=== PATIENT | male | born 1990 | race African-American/Black ===

== ENCOUNTER 2017-12-22 21:31 | Emergency (ER) | payer MEDICAID ==
[~2017-12-22] VITALS: Ht 185.4 cm; Wt 81.6 kg
[~2017-12-22 21:31] MED LIST: AZITHROMYCIN500 MG ORAL; KENALOG 0.1% CR15 GM APPLIC; PROAIR HFA8.5 GM INH
[2017-12-22 22:46] LABS: HEMATOCRIT 35.2 % (42.0-52.0); HEMOGLOBIN 11.8 G/DL (14.2-18.0); MEAN CORPUSCULAR VOLUME 89 FL (80-99); PLATELET COUNT 98 K/UL (150-450); RED BLOOD COUNT 3.95 M/UL (4.70-6.10); RED CELL DISTRIBUTION WIDTH 11.2 % (11.6-14.8); WHITE BLOOD COUNT 5.6 K/UL (4.8-10.8)
[2017-12-22 22:47] LABS: LYMPHOCYTES % (AUTO) 29.8 % (20.0-45.0); MONOCYTES % (AUTO) 7.9 % (1.0-10.0); NEUTROPHILS % (AUTO) 61.5 % (45.0-75.0)
[2017-12-22 22:48] LABS: BASOPHILS % (AUTO) 0.2 % (0.0-2.0); EOSINOPHILS % (AUTO) 0.6 % (0.0-3.0)
[2017-12-22 23:00] LABS: ANION GAP 3 mmol/L (5-15); BLOOD UREA NITROGEN 10 mg/dL (7-18); CARBON DIOXIDE 30 MMOL/L (21-32); CHLORIDE 103 MMOL/L (98-107); POTASSIUM 3.4 MMOL/L (3.5-5.1); SODIUM 136 MMOL/L (136-145)
[2017-12-22 23:01] LABS: CALCIUM 8.6 MG/DL (8.5-10.1)
[2017-12-22 23:06] LABS: ALANINE AMINOTRANSFERASE 20 U/L (12-78); ALBUMIN 2.9 G/DL (3.4-5.0); ALBUMIN/GLOBULIN RATIO 0.5 (1.0-2.7); ALKALINE PHOSPHATASE 75 U/L (46-116); ASPARTATE AMINO TRANSFERASE 18 U/L (15-37); BILIRUBIN,TOTAL 0.2 MG/DL (0.2-1.0)
[2017-12-22 23:12] LABS: APPEARANCE,URINE TURBID; BILIRUBIN, URINE NEGATIVE (NEGATIVE); GLUCOSE, URINE (UA) NEGATIVE (NEGATIVE); KETONES,URINE NEGATIVE (NEGATIVE); LEUKOCYTE ESTERASE ,URINE 1+ (NEGATIVE); NITRITE,URINE NEGATIVE (NEGATIVE); PH,URINE 6.5 (4.5-8.0); PROTEIN,URINE 3+ (NEGATIVE); UROBILINOGEN,URINE NORMAL MG/DL (0.0-1.0)
[2017-12-22 23:15] LABS: COLOR,URINE RED
[2017-12-22 23:21] VITALS: BP 102/61
[2017-12-23 00:31] VITALS: BP 95/38
[2017-12-23 03:42] VITALS: BP 115/63
[2017-12-23 05:42] VITALS: BP 105/66
--- NOTE | 2017-12-23 05:54 | Emergency Room Report ---
History of Present Illness General Chief Complaint: Altered Level of Consciousness Source: EMS Present Illness HPI 27-year-old male presents ED for evaluation. Patient brought in by EMS found altered. Found sleeping in his car tonight. Upon arrival patient lethargic unable to provide any additional history. No signs of distress. [employer] on scene state that they found marijuana in the car. No other aggravating relieving factors. No other associated symptoms Allergies: Coded Allergies: SHELLFISH DERIVED (Unverified Allergy, Unknown, 01/04/16) UNABLE TO ASSESS (Unverified , 12/22/17) Uncoded Allergies: SHELLFISH (Allergy, Unknown, 01/04/16) Patient History Past Medical History: HIV Past Surgical History: none Pertinent Family History: none Social History: Reports: drug use, Denies: smoking, alcohol use Immunizations: UTD Reviewed Nursing Documentation: PMH: Agreed, PSxH: Agreed Nursing Documentation-PMH Past Medical History Deferred: Pt Cognitively Impaired Hx Cardiac Problems: Yes - hiv Review of Systems All Other Systems: limited Physical Exam Vital Signs Date Time Temp Pulse Resp B/P (MAP) Pulse Ox O2 Delivery O2 Flow Rate FiO2 12/22/17 21:09 98.6 68 18 138/86 98 Room Air 98.6 Sp02 EP Interpretation: reviewed, normal General Appearance: no apparent distress, lethargic Head: normocephalic Eyes: bilateral eye normal inspection, bilateral eye PERRL ENT: normal ENT inspection Neck: normal inspection Respiratory: chest non-tender, lungs clear, normal breath sounds, speaking full sentences Cardiovascular #1: regular rate, rhythm, no edema Gastrointestinal: normal bowel sounds, non tender, soft, non-distended, no guarding, no rebound Rectal: deferred Genitourinary: no CVA tenderness Musculoskeletal: normal inspection Neurologic: other - lethargic Psychiatric: other - lethargic Skin: normal inspection Lymphatic: normal inspection Medical Decision Making Diagnostic Impression: Primary Impression: Substance abuse Additional Impression: Altered level of consciousness ER Course Hospital Course 27-year-old M presents to ED with altered mental status. Differential diagnoses include: Psychosis, EtOH, drug abuse Clinical course patient placed on stretcher. On ammonia distiller. After initial history and physical ordered labs, IV fluids, EKG, CT brain. Labs reviewed-electrolytes okay, no leukocytosis, hemoglobin/hematocrit stable, tox panel + for multilple substances EKG - NSR, no acute ischemic changes interpreted by me CT brain shows no acute pathology patient allowed to sleep. Patient is now awake alert oriented x3, ambulating i. I feel this is a highly complex case requiring extensive working including EKG/Rhythm strip, Xray/CT/US, Blood/urine lab work, repeat exams while in ED, and administration of strong opiates/narcotics for pain control, admission to hospital or close patient follow up. Diagnosis - substance abuse, ALOC Stable and discharged to home. Followup with PMD. Return to ED if symptoms recur or worsen Labs Test 12/22/17 22:10 12/22/17 22:54 White Blood Count 5.6 K/UL (4.8-10.8) Red Blood Count 3.95 M/UL (4.70-6.10) Hemoglobin 11.8 G/DL (14.2-18.0) Hematocrit 35.2 % (42.0-52.0) Mean Corpuscular Volume 89 FL (80-99) Mean Corpuscular Hemoglobin 29.8 PG (27.0-31.0) Mean Corpuscular Hemoglobin Concent 33.5 G/DL (32.0-36.0) Red Cell Distribution Width 11.2 % (11.6-14.8) Platelet Count 98 K/UL (150-450) Mean Platelet Volume 6.4 FL (6.5-10.1) Neutrophils (%) (Auto) 61.5 % (45.0-75.0) Lymphocytes (%) (Auto) 29.8 % (20.0-45.0) Monocytes (%) (Auto) 7.9 % (1.0-10.0) Eosinophils (%) (Auto) 0.6 % (0.0-3.0) Basophils (%) (Auto) 0.2 % (0.0-2.0) Sodium Level 136 MMOL/L (136-145) Potassium Level 3.4 MMOL/L (3.5-5.1) Chloride Level 103 MMOL/L (98-107) Carbon Dioxide Level 30 MMOL/L (21-32) Anion Gap 3 mmol/L (5-15) Blood Urea Nitrogen 10 mg/dL (7-18) Creatinine 1.0 MG/DL (0.55-1.30) Estimat Glomerular Filtration Rate > 60 mL/min (>60) Glucose Level 92 MG/DL (74-106) Calcium Level 8.6 MG/DL (8.5-10.1) Total Bilirubin 0.2 MG/DL (0.2-1.0) Aspartate Amino Transf (AST/SGOT) 18 U/L (15-37) Alanine Aminotransferase (ALT/SGPT) 20 U/L (12-78) Alkaline Phosphatase 75 U/L (46-116) Total Protein 8.8 G/DL (6.4-8.2) Albumin 2.9 G/DL (3.4-5.0) Globulin 5.9 g/dL Albumin/Globulin Ratio 0.5 (1.0-2.7) Salicylates Level 1.3 ug/mL (2.8-20) Acetaminophen Level < 2 MCG/ML (10-30) Phenytoin (Dilantin) Level < 0.4 ug/mL (10-20) Valproic Acid (Depakene) Level < 3 MCG/ML (50-100) Carbamazepine (Tegretol) Level < 0.5 ug/mL (4.0-12.0) Phenobarbital Level < 1.0 ug/mL (15-40) Serum Alcohol < 3 mg/dL Urine Color Red Urine Appearance Turbid Urine pH 6.5 (4.5-8.0) Urine Specific Eva 1.015 (1.005-1.035) Urine Protein 3+ (NEGATIVE) Urine Glucose (UA) Negative (NEGATIVE) Urine Ketones Negative (NEGATIVE) Urine Occult Blood 4+ (NEGATIVE) Urine Nitrite Negative (NEGATIVE) Urine Bilirubin Negative (NEGATIVE) Urine Urobilinogen Normal MG/DL (0.0-1.0) Urine Leukocyte Esterase 1+ (NEGATIVE) Urine RBC Tntc /HPF (0 - 0) Urine WBC 0-2 /HPF (0 - 0) Urine Squamous Epithelial Cells None /LPF (NONE/OCC) Urine Bacteria Occasional /HPF (NONE) Urine Opiates Screen Negative (NEGATIVE) Urine Barbiturates Screen Negative (NEGATIVE) Phencyclidine (PCP) Screen Negative (NEGATIVE) Urine Amphetamines Screen Positive (NEGATIVE) Urine Benzodiazepines Screen Negative (NEGATIVE) Urine Cocaine Screen Positive (NEGATIVE) Urine Marijuana (THC) Screen Positive (NEGATIVE) EKG Diagnostic Results Rate: normal Rhythm: NSR ST Segments: no acute changes ASA given to the pt in ED: No Rhythm Strip Diag. Results EP Interpretation: yes Rhythm: NSR, no PVC's, no ectopy CT/MRI/US Diagnostic Results CT/MRI/US Diagnostic Results : Imaging Test Ordered: CT Head Impression no acute process Last Vital Signs Date Time Temp Pulse Resp B/P (MAP) Pulse Ox O2 Delivery O2 Flow Rate FiO2 12/23/17 05:42 97.8 57 23 105/66 100 Room Air 97.8 Status: improved Disposition: HOME, SELF-CARE Condition: Stable Referrals: [facility],REFERRING (PCP) ELICEO DENT M.D. Dec 23, 2017 05:54
[2017-12-23 07:08] VITALS: BP 111/68
--- NOTE | 2017-12-23 09:56 | Diagnostic Imaging Report ---
Indication: Abnormal bleeding, hematuria Technique: Spiral acquisitions obtained through the abdomen and pelvis. No oral contrast utilized, per emergency room physician request No IV contrast utilized, per referring physician request.. Multiplanar reconstructions were generated. Total dose length product 785.58 mGycm. CTDIvol(s) 14.36 mGy. Dose reduction achieved using automated exposure control Comparison: None Findings: Lack of enteric contrast, paucity of body fat limits assessment of the GI tract. No evidence of diverticulosis or diverticulitis. Questionable mild wall thickening of the rectum. Prominent perirectal lymph nodes are noted.. The appendix is normal. No small bowel distention. No free or loculated intraperitoneal air or fluid is evident. Distal esophagus, stomach, duodenum are unremarkable. Lack of IV contrast limits assessment of the solid organs. The liver is unremarkable. The gallbladder demonstrates a small calculus which may be in the wall or may be intraluminal. The bile ducts, pancreas, spleen, adrenals are all unremarkable. The kidneys are unremarkable except for a 1 cm interpolar region cyst on the left. No renal or ureteral calculi. There is a Lares catheter within the bladder. Some air within the bladder is presumably related to Lares catheterization. The included lung bases are clear. The bones are unremarkable. Impression: Suggestion of rectal wall thickening, with prominent perirectal lymph nodes. Findings could indicate proctocolitis. Correlate with clinical findings Lares catheter. Air within the bladder presumably related to such. No urinary tract abnormality otherwise to suggest etiology of stated clinical history of hematuria Small calcification in the gallbladder fossa, probably not within the gallbladder lumen Incidental finding small left renal cyst. No further follow-up necessary This agrees with the preliminary interpretation provided overnight by [facility]erad[facility]. The CT scanner at [facility] is accredited by the [employer] and the scans are performed using protocols designed to limit radiation exposure to as low as reasonably achievable to attain images of sufficient resolution adequate for diagnostic evaluation.
--- NOTE | 2017-12-23 10:28 | Diagnostic Imaging Report ---
Indication: Altered mental status Technique: Continuous helical CT scanning of the head was performed without intravenous contrast material. Axial and coronal 5 mm sections were generated. Radiation dose was minimized using automated exposure control Dose: Total Dose Length Product - DLP [address] Dose Index - CTDIvol(s) 70 mGy. Comparison: none Findings: The ventricular system is normal in size and configuration. There is no shift of midline structures. No abnormal extra-axial fluid collections are noted. There is no evidence of intracerebral bleeding. No other abnormal high or low density areas are noted within the brain. Intact calvarium. Visualized orbits and sinuses are unremarkable Impression: Normal CT scan of the head without contrast material. The CT scanner at [facility] is accredited by the [employer] and the scans are performed using protocols designed to limit radiation exposure to as low as reasonably achievable to attain images of sufficient resolution adequate for diagnostic evaluation.
[2017-12-23 10:38] VITALS: BP 119/74
[2017-12-23 10:42] VITALS: BP 119/74
--- NOTE | 2017-12-23 14:14 | Cardiology Report ---
APPROVED REPORT EKG Measurement Heart [id number] Normal sinus rhythm Early repolarization Normal ECG
== END 2017-12-23 10:58 | disposition home or self-care (01) ==
LOC: EDBD 21:31 → EMR 21:41
DX: F19.10 Other psychoactive substance abuse, uncomplicated (principal); R41.82 Altered mental status, unspecified; Z91.013 Allergy to seafood; B20 Human immunodeficiency virus [HIV] disease; N28.1 Cyst of kidney, acquired
CPT/HCPCS: 36415; 70450; 74176; 80053; 80156; 80164; 80184; 80185; 80307; 80329; 81003; 82962; 85025; 93005; 96360; 99284